=== PATIENT | female | born 1960 | race Caucasian/White ===

== ENCOUNTER 2017-07-25 16:04 | Observation (INO) | payer OTHER ==
[~2017-07-25] VITALS: Ht 152.4 cm; Wt 50.8 kg
[~2017-07-25 16:04] MED LIST: CARISOPRODOL350 MG PO; DIAZEPAM10 M1 PO; DIAZEPAM10 MG PO; FLUOXETINE HCL20 M2 PO; KEFLEX500 MG PO; KENALOG 0.1% LO60 ML TOP; KEPPRA500 M1 PO; LOCOID0.1% TOP; NEURONTIN400 M1 PO; NEURONTIN600 M1 PO; NEURONTIN800 M1 PO; OXYCODONE HCL15 M1 PO; OXYCONTIN10 M1 PO; OXYCONTIN20 MG PO; PERCOCET 325 MG1 TA2 PO; SOMA350 M1 PO; TIZANIDINE4 MG PO; VALIUM5 M2 PO
--- NOTE | 2017-07-25 16:13 | ED AMS/SEIZURE/WEAK/DIZZY ---
See Addendum History of Present Illness General Chief Complaint: ETOH/Drug Related Complaint Stated Complaint: BIBA +ETOH, HYPOTENSION Source: family, old records, EMS Exam Limitations: intoxication Allergies Coded Allergies: erythromycin base (Intermediate, RASH 10/27/16) nut - unspecified (TONGUE SWELLING, RASH 07/25/17) Reconcile Medications Aspirin (Adult Low Dose Aspirin EC) 81 MG TABLET.DR 81 MG PO DAILY HEART HEALTH (Reported) Atorvastatin Calcium 40 MG TABLET 1 TAB PO DAILY CHOLESTEROL (Reported) Carisoprodol (SOMA) 350 MG TABLET 1 TAB PO BIDP PRN PAIN (Reported) Clopidogrel Bisulfate (Plavix) 75 MG TABLET 75 MG PO DAILY BLOOD THINNER ( Reported) Diazepam 10 MG TABLET 1 TAB PO AD PRN ANXIETY (Reported) Fluoxetine HCl 20 MG CAPSULE 1 CAP PO DAILY DEPRESSION (Reported) Gabapentin (Neurontin) 600 MG TABLET 600 MG PO TID SLEEP (Reported) Metoprolol Tartrate 25 MG TABLET 1 TAB PO BID HEART/BP (Reported) Multivitamin (Multi-Vitamin Daily) 1 EACH TABLET 1 TAB PO DAILY SUPPLEMENT ( Reported) Oxycodone HCl 20 MG TABLET 1 TAB PO TID PAIN (Reported) Tizanidine HCl 4 MG TABLET 1 TAB PO BID PRN MUSCLE SPASMS (Reported) Triage Nurses Notes Reviewed? yes Onset: Abrupt Duration: hour(s):, constant, continues in ED Timing: single episode today Injury Environment: home No Modifying Factors: none HPI: 56-year-old female comes into the emergency room for altered mental status by ambulance. The reports that she was seen normal prior about an hour before hand. When he came home he found her on the bed unresponsive. She has a history of EtOH and substance abuse. He called the ambulance. History is limited. Patient is on benzodiazepines opioids and has a history of alcoholism. Patient was found to be hypotensive in the field with a blood pressure 70 initially. She was given 0.8 mg of Narcan with minimal improvement. (Herbert Lantigua) Vital Signs & Intake/Output Vital Signs & Intake/Output Vital Signs Date Time Temp Pulse Resp B/P B/P Pulse O2 O2 Flow FiO2 Mean Ox Delivery Rate 07/26 0237 97.2 67 20 124/74 97 Room Air 07/254 97.8 64 18 130/68 98 07/25 1914 98.0 69 20 121/64 96 Room Air 07/25 1838 97.5 67 18 117/60 99 07/25 1716 61 16 120/67 98 Room Air 07/25 1628 96.8 65 14 110/55 96 Room Air ED Intake and Output 07/26 0000 07/25 1200 Intake Total 1000 Output Total 2100 Balance -1100 Intake, IV 1000 Output, Urine 2100 Patient 112 lb Weight Weight Reported by Patient Measurement Method (Sven SUE,Juaquin Alvarado) Past History Travel History Traveled to [place] past 21 day No Medical History Any Pertinent Medical History? see below for history Neurological: peripheral neuropathy EENT: NONE Cardiovascular: NONE Respiratory: NONE Gastrointestinal: NONE Hepatic: NONE Renal: NONE Musculoskeletal: fibromyalgia, osteoarthritis Psychiatric: NONE Endocrine: NONE Blood Disorders: NONE Cancer(s): ovarian cancer IT SOFTWARE ENGINEER/Reproductive: NONE Other Medical Hx: RA History of MRSA: No History of VRE: No History of CDIFF: No Tetanus Vaccine: 05/27/14 Surgical History Surgical History: TAHBSO KNEE SURGERY Psychosocial History Who do you live with Spouse What is your primary language Swiss Family History Hx Contributory? No (Herbert Lantigua) Review of Systems Review of Systems Constitutional: Reports: no symptoms. EENTM: Reports: no symptoms. Respiratory: Reports: no symptoms. Cardiovascular: Reports: no symptoms. GI: Reports: no symptoms. Genitourinary: Reports: no symptoms. Musculoskeletal: Reports: no symptoms. Skin: Reports: no symptoms. Neurological/Psychological: Reports: see HPI. Hematologic/Endocrine: Reports: no symptoms. Immunologic/Allergic: Reports: no symptoms. All Other Systems: Reviewed and Negative (Herbert Lantigua) Physical Exam Physical Exam General Appearance: sedated, mild distress, intoxicated Head: atraumatic Eyes: Bilateral: PERRL, other (pupils dilated). Ears, Nose, Throat: normal ENT inspection Neck: normal inspection Respiratory: no respiratory distress Cardiovascular: regular rate/rhythm Gastrointestinal: soft Back: normal inspection Extremities: limited range of motion Neurologic/Psych: responds to sternal rub Skin: intact Core Measures ACS in differential dx? No CVA/TIA Diagnosis No Sepsis Present: No Sepsis Focused Exam Completed? No (Herbert Lantigua) Progress Differential Diagnosis: alcohol intoxication, CVA/stroke, drug intoxication, encephalitis, electrolyte imbalance, GI bleed, intracranial Hem., intracranial mass/tumor, migraine NUNES, postural hypotension, presyncope, post-traumatic vertigo, seizure disorder, subarachnoid Hem., vertebrobasilar insuff Diagnostic Imaging: Viewed by Me: Radiology Read, CT Scan. Discussed w/RAD: Radiology Read, CT Scan. Radiology Impression: PATIENT: SELAM FARRELL PRESENT AGE: 56 PATIENT ACCOUNT NO: [id number] : 58 LOCATION: ER ORDERING PHYSICIAN: Herbert TELLEZ SERVICE DATE: 07/25/17 EXAM TYPE : CAT - CT HEAD WO IV CONTRAST EXAMINATION: CT HEAD WITHOUT CONTRAST CLINICAL INFORMATION: Reported mental status. COMPARISON: MR brain 10/28/2016. CT head . TECHNIQUE: Contiguous axial imaging was performed from the skull base to vertex without intravenous administration of contrast. DLP: 970.96 mGy-cm FINDINGS: Stable appearance of the brain with minimal periventricular and subcortical white matter hypodensity bilaterally, more pronounced on the left, likely reflecting sequela of chronic white matter disease. There is no evidence of acute intracranial hemorrhage or territorial infarction. No abnormal mass effect or midline shift is seen. Waters to white matter differentiation is well preserved. No extra-axial fluid collections are identified. The ventricles are normal in size. There is no abnormal attenuation within the brain parenchyma. The osseous structures and soft tissues are normal. The mastoid air cells and visualized portions of the paranasal sinuses are well aerated. IMPRESSION: Stable appearance of the brain. No acute intracranial pathology. DICTATED BY: Raf Sahu MD DATE/TIME DICTATED:07/25/171754 VICE PRESIDENT FOR PHILANTHROPY:SHAN DATE/TIME TRANSCRIBED:07/25/171754 CONFIDENTIAL, DO NOT COPY WITHOUT APPROPRIATE AUTHORIZATION. <Electronically signed in Other Vendor System> SIGNED BY: Raf Sahu MD 07/25/171801, PATIENT: SELAM FARRELL PRESENT AGE: 56 PATIENT ACCOUNT NO: [id number] : 58 LOCATION: [facility] ORDERING PHYSICIAN: Herbert TELLEZ SERVICE DATE: 07/25/171611 EXAM TYPE: RAD - XRY-PORTABLE CHEST XRAY EXAMINATION: XR PORTABLE CHEST CLINICAL INFORMATION: Altered mental status. COMPARISON: Chest radiograph 2016. TECHNIQUE: Portable frontal view of the chest was obtained. FINDINGS: The patient is slightly rotated rendering evaluation suboptimal. Mild fullness of the right terri is likely due to patient positioning. Minimal prominence of the lung markings bilaterally. Cardiomediastinal silhouette and pulmonary vasculature are within normal limits. No pleural effusion. No acute osseous finding. IMPRESSION: Prominence of the right hilum likely reflects artifact due to patient positioning. Mild prominence of lung markings bilaterally which could represent minimal volume overload or chronic lung disease. No focal airspace consolidation DICTATED BY: Raf Sahu MD DATE/TIME DICTATED:07/25/171644 VICE PRESIDENT FOR PHILANTHROPY:SHAN DATE/TIME TRANSCRIBED:07/25/171644 CONFIDENTIAL, DO NOT COPY WITHOUT APPROPRIATE AUTHORIZATION. <Electronically signed in Other Vendor System> SIGNED BY: Raf Sahu MD 07/25/171651 Initial ED EKG: normal sinus rhythm, rate (61) Comments: 07/25/2017 7:50:49 PM Patient was placed in ED observation. The attending ER physician resumed care at this time. (Jake TELLEZ,Herbert) Plan of Care: Orders Procedure Date/time Status Regular Diet 07/[address] in observation 07/25 1756 Active ED Holding Orders 07/25 175 Active Patient Data 07/25 175 Active Vital Signs 07/25 175 Active Code Status 07/25 175 Active ED CRISIS PSYCH CONSULT 07/25 175 Active Intake & Output 07/25 1631 Active Telemetry/Mail Distribution Scheme Examiner 07/25 161 Active Johnson, Insertion/Removal/Asses 07/25 161 Active CULTURE,URINE 07/25 161 Active URINE DRUGS OF ABUSE 07/25 161 Complete URINALYSIS 07/25 161 Complete TROPONIN LEVEL 07/25 161 Complete ETHANOL 07/25 161 Complete COMPREHENSIVE METABOLIC PANEL 07/25 161 Complete CBC WITHOUT DIFFERENTIAL 07/26 1611 Complete EKG 07/26 1611 Active Laboratory Tests 07/25/17 1655: Serum Alcohol 275.0 07/25/17 1655: Anion Gap 15, Estimated GFR > 60, BUN/Creatinine Ratio 20.0, Glucose 90, Calcium 9.3, Total Bilirubin 0.4, AST 22, ALT 21, Alkaline Phosphatase 78, Troponin I < 0.01, Total Protein 6.3, Albumin 3.9, Globulin 2.4, Albumin/Globulin Ratio 1.6, CBC w Diff NO MAN DIFF REQ, RBC 3.59 L, MCV 97.0, MCH 33.1 H, MCHC 34.2, RDW 12.8, MPV 8.3, Gran % 51.2, Lymphocytes % 38.0, Monocytes % 8.9, Eosinophils % 1.5, Basophils % 0.4, Absolute Granulocytes 3.4, Absolute Lymphocytes 2.5, Absolute Monocytes 0.6, Absolute Eosinophils 0.1, Absolute Basophils 0, Urine Opiates Screen 298, Methadone Screen < 40, Barbiturate Screen < 60, Ur Phencyclidine Scrn < 6.00, Amphetamines Screen < 100, U Benzodiazepines Scrn > 800 H, Urine Cocaine Screen < 50, Urine Cannabis Screen < 5.00, Urine Color YEL , Urine Clarity CLEAR, Urine pH 7.0, Ur Specific [place] 1.015, Urine Protein NEG, Urine Ketones NEG, Urine Nitrite NEG, Urine Bilirubin NEG, Urine Urobilinogen 0.2, Ur Leukocyte Esterase NEG, Ur Microscopic SEDIMENT EXAMINED, Urine RBC RARE, Urine WBC RARE, Ur Epithelial Cells RARE, Urine Bacteria RARE H , Urine Mucus RARE, Urine Hemoglobin TRACE-LYSED, Urine Glucose NEG Microbiology 07/25 1655 URINE ROUT: Urine Culture - RECD (Sven SUE,Juaquin Alvarado) Hand-Off Endorsed To: Johnathan Ramos MD Endorsed Time: 0700 Pending: consult (Shira SUE,Bladimir Harden) Departure Departure Disposition: STILL A PATIENT Condition: Stable Clinical Impression Primary Impression: ETOH abuse Secondary Impressions: Benzodiazepine overdose Referrals: Josh Rios MD, I. (PCP/Family) Departure Forms: Customer Survey General Discharge Information (Herbert Lantigua) PA/AIR CONDITIONING SERVICE TECHNICIAN Co-Sign Statement Statement: ED Attending supervision documentation- [X] I saw and evaluated the patient. I have also reviewed all the pertinent lab results and diagnostic results. I agree with the findings and the plan of care as documented in the PA's/AIR CONDITIONING SERVICE TECHNICIAN's documentation. [X] I have reviewed the ED Record and agree with the PA's/AIR CONDITIONING SERVICE TECHNICIAN's documentation. [] Additions or exceptions (if any) to the PAs/AIR CONDITIONING SERVICE TECHNICIAN's note and plan are summarized below: [] (Sven SUE,Juaquin Alvarado) PA/AIR CONDITIONING SERVICE TECHNICIAN Co-Sign Statement Statement: ED Attending supervision documentation- [] I saw and evaluated the patient. I have also reviewed all the pertinent lab results and diagnostic results. I agree with the findings and the plan of care as documented in the PA's/AIR CONDITIONING SERVICE TECHNICIAN's documentation. [x] I have reviewed the ED Record and agree with the PA's/AIR CONDITIONING SERVICE TECHNICIAN's documentation. [] Additions or exceptions (if any) to the PAs/AIR CONDITIONING SERVICE TECHNICIAN's note and plan are summarized below: [] (Shira SUE,Bladimir Harden) Critical Care Note Critical Care Note Critical Care Time: 30-74 min (35) (Jake TELLEZ,Herbert) ED Attending Observation Initial Observation Note: I have seen and personally examined SELAM FARRELL on 07/25/17 at 1755. I agree with the current emergency department documentation. The disposition (admission or discharge) is uncertain at this time, she needs a period of observation for the following reason(s): [Patient brought in intoxicated. Patient is 69 responsive. Patient will need close monitoring of waiting sobriety.] The ED Nurse caring for this patient has been personally informed as to what the patient is being observed for. (Sven SUE,Juaquin Alvarado)
--- NOTE | 2017-07-25 16:52 | RADIOLOGY REPORT ---
EXAMINATION: XR PORTABLE CHEST CLINICAL INFORMATION: Altered mental status. COMPARISON: Chest radiograph 10/27/2016. TECHNIQUE: Portable frontal view of the chest was obtained. FINDINGS: The patient is slightly rotated rendering evaluation suboptimal. Mild fullness of the right terri is likely due to patient positioning. Minimal prominence of the lung markings bilaterally. Cardiomediastinal silhouette and pulmonary vasculature are within normal limits. No pleural effusion. No acute osseous finding. IMPRESSION: Prominence of the right hilum likely reflects artifact due to patient positioning. Mild prominence of lung markings bilaterally which could represent minimal volume overload or chronic lung disease. No focal airspace consolidation
[2017-07-25 17:18] LABS: ABSOLUTE BASOPHIL COUNT 0 /CUMM (0.0-0.2); ABSOLUTE EOSINOPHIL COUNT 0.1 /CUMM (0.0-0.7); ABSOLUTE GRANULOCYTE CT 3.4 /CUMM (1.4-6.5); ABSOLUTE LYMPH COUNT 2.5 /CUMM (1.2-3.4); ABSOLUTE MONOCYTE COUNT 0.6 /CUMM (0.10-0.60); BASOPHIL % 0.4 % (0.0-2.0); EOSINOPHIL % 1.5 % (0-5); GRANULOCYTE % 51.2 % (42.2-75.2); HEMATOCRIT 34.9 % (37-47); MEAN CORPUSCULAR HGB 33.1 PG (27.0-31.0); MEAN CORPUSCULAR HGB CONC 34.2 G/DL (33.0-37.0); MEAN PLATELET VOLUME 8.3 FL (7.4-10.4); PLATELET COUNT 178 /CUMM (130-400); RBC DISTRIBUTION WIDTH 12.8 % (11.5-14.5); RED BLOOD CELL CT 3.59 /CUMM (4.20-5.40); WHITE BLOOD CELL COUNT 6.6 /CUMM (4.8-10.8)
[2017-07-25] MEDS ORDERED: PLAVIX75 M1 PO (17:22)
[2017-07-25] MEDS ORDERED: TOPROL XL25 M1 PO (17:23)
[2017-07-25] MEDS ORDERED: ADULT LOW DOSE81 MG PO (17:24)
[2017-07-25] MEDS ORDERED: METOPROLOL TART25 M1 PO (17:29)
[2017-07-25] MEDS ORDERED: DIAZEPAM10 M1 PO (17:31)
[2017-07-25] MEDS ORDERED: ATORVASTATIN CA40 M1 PO (17:31)
[2017-07-25] MEDS ORDERED: TIZANIDINE HCL4 M1 PO (17:32)
[2017-07-25] MEDS ORDERED: OXYCODONE HCL20 M2 PO (17:32)
[2017-07-25] MEDS ORDERED: MULTI-VITAMIN1 EACH PO (17:35)
--- NOTE | 2017-07-25 18:02 | CT SCAN REPORT ---
EXAMINATION: CT HEAD WITHOUT CONTRAST CLINICAL INFORMATION: Reported mental status. COMPARISON: MR brain 10/28/2016. CT head 10/27/2016. TECHNIQUE: Contiguous axial imaging was performed from the skull base to vertex without intravenous administration of contrast. DLP: 970.96 mGy-cm FINDINGS: Stable appearance of the brain with minimal periventricular and subcortical white matter hypodensity bilaterally, more pronounced on the left, likely reflecting sequela of chronic white matter disease. There is no evidence of acute intracranial hemorrhage or territorial infarction. No abnormal mass effect or midline shift is seen. Waters to white matter differentiation is well preserved. No extra-axial fluid collections are identified. The ventricles are normal in size. There is no abnormal attenuation within the brain parenchyma. The osseous structures and soft tissues are normal. The mastoid air cells and visualized portions of the paranasal sinuses are well aerated. IMPRESSION: Stable appearance of the brain. No acute intracranial pathology.
[2017-07-26 05:41] VITALS: BP 132/68
== END 2017-07-26 05:40 ==
LOC: ERH 16:04 → ERHI 17:57
PROVIDERS: Physician Assistant Medical
DX: T42.4X1A Poisoning by benzodiazepines, accidental (unintentional), initial encounter (principal); Y92.009 Unspecified place in unspecified non-institutional (private) residence as the place of occurrence of the external cause; I95.9 Hypotension, unspecified; Z79.82 Long term (current) use of aspirin; F10.10 Alcohol abuse, uncomplicated; G62.9 Polyneuropathy, unspecified; M19.90 Unspecified osteoarthritis, unspecified site; Z85.43 Personal history of malignant neoplasm of ovary; Z79.01 Long term (current) use of anticoagulants
CPT/HCPCS: 6090; 71045; 80307; 81001; 87086; 93005; 93010; 96374; 99291; G0378; G0480; J2310